=== PATIENT | male | born 1990 | race African-American/Black ===

== ENCOUNTER 2019-01-09 21:41 | Emergency (ER) | payer OTHER ==
[~2019-01-09] VITALS: Ht 170.2 cm; Wt 78.7 kg
[2019-01-09] MEDS ORDERED: ONDANSETRON ODT 8 MG PO PRN (22:00)
--- NOTE | 2019-01-09 22:07 | NUR ---
pt to room from lobby
[2019-01-09] MEDS ORDERED: ONDANSETRON ODT 8 MG ONE (22:12)
[2019-01-09 22:19] LABS: MICROSCOPIC NOT IND
[2019-01-09 22:21] LABS: MEAN CORPUSCULAR HEMOGLOBIN 29.2 pg (27.5-34.5); MEAN CORPUSCULAR HGB CONC 33.8 g/dL (33.2-36.2); MEAN CORPUSCULAR VOLUME 86.5 fL (81-97); MEAN PLATELET VOLUME 8.2 fL (7.4-10.4); PLATELET COUNT 289 x10^3/uL (130-400); RED BLOOD COUNT 4.39 x10^6/uL (4.38-5.82); RED CELL DISTRIBUTION WIDTH 14.4 % (9.4-14.8)
[2019-01-09 22:22] LABS: CULTURE INDICATED? NO
--- NOTE | 2019-01-09 22:26 | NUR ---
PT. TO ED WITH C/O LUQ ABD PAIN X 3 HOURS ONSET AFTER EATING TONIGHT. C/O NAUSEA DENIES VOMITING. DENIES ABD MEDICAL HX. HAS BEEN MEDICATED PER NOV. DR. KOROMA IN TO EVAL PT. AND DISCUSS POC.
[2019-01-09] MEDS ORDERED: ACETAMINOPHEN 500 MG TABLET PO ONE (22:30)
[2019-01-09] MEDS ORDERED: KETOROLAC 30 MG/1 ML IM ONE (22:30)
[2019-01-09] MEDS ORDERED: ACETAMINOPHEN 500 MG TABLET ONE (22:31)
[2019-01-09] MEDS ORDERED: KETOROLAC 30 MG/1 ML ONE (22:31)
[2019-01-09 22:34] LABS: ALANINE AMINOTRANSFERASE 26 U/L (12-78); ALBUMIN 4.1 g/dL (3.4-5.0); CALCIUM 9.3 mg/dL (8.5-10.1); CREATININE 0.88 mg/dL (0.7-1.3)
--- NOTE | 2019-01-09 22:38 | NUR ---
PT. TO US VIA [facility].
[2019-01-09 22:41] LABS: MD YES
[2019-01-09 22:45] LABS: EOS#(MANUAL) 0.14 x10^3/uL (0.0-0.4); EOS% (MANUAL) 3 % (1-7); LYMPH#(MANUAL) 2.59 x10^3/uL (1-3.4); LYMPHS% (MANUAL) 55 % (22-44); MONOS#(MANUAL) 0.56 x10^3/uL (0.3-2.7); MONOS% (MANUAL) 12 % (2-9); SEG#(MANUAL) 1.41 x10^3/uL (1.8-6.8); SEGS% (MANUAL) 30 % (42-75)
[2019-01-09 22:46] LABS: <PLATELET ESTIMATE> ADEQUATE; <PLT MORPHOLOGY> NORMAL PLT MORPH; <RBC MORPHOLOGY> NORMAL
[2019-01-09 23:01] LABS: ANION GAP 4 mmol/L (5-15); CHLORIDE 104 mmol/L (98-107)
[2019-01-09 23:02] LABS: ALKALINE PHOSPHATASE 103 U/L (45-117); BILIRUBIN,TOTAL 0.2 mg/dL (0.2-1.0); TOTAL PROTEIN 8.3 g/dL (6.4-8.2)
--- NOTE | 2019-01-09 23:10 | NUR ---
PT. MEDICATED PER MAR. REFUSING TORODOL BECAUSE "I DON'T WANT A SHOT". PT. DENIES NEEDS. VS UPDATED. CALL LIGHT IN REACH. NADN. REPORTS NO NAUSEA AT THIS TIME .
[2019-01-09 23:43] VITALS: BP 110/71
== END 2019-01-09 23:44 | disposition home or self-care (01) ==
LOC: ED 23:30
DX: R10.12 Left upper quadrant pain (principal); R10.13 Epigastric pain; R11.0 Nausea; F17.200 Nicotine dependence, unspecified, uncomplicated
CPT/HCPCS: 36415; 76700; 80053; 81003; 83690; 85025; 99284; Q0162